=== PATIENT | female | born 1990 | race Caucasian/White ===

== ENCOUNTER 2018-11-27 06:02 | Emergency (ER) | payer SELFPAY ==
[~2018-11-27] VITALS: Ht 149.9 cm; Wt 68.0 kg
[2018-11-27 07:00] VITALS: BP 121/75
== END 2018-11-27 07:05 | disposition home or self-care (01) ==
LOC: EMS 06:08 → EDSEX 06:08 → EMS 07:05
DX: K02.9 Dental caries, unspecified (principal); K06.8 Other specified disorders of gingiva and edentulous alveolar ridge

== ENCOUNTER 2019-01-03 08:33 | Emergency (ER) | payer SELFPAY ==
[~2019-01-03] VITALS: Ht 152.4 cm; Wt 59.1 kg
[2019-01-03 10:57] VITALS: BP 116/89
== END 2019-01-03 11:01 | disposition home or self-care (01) ==
LOC: EMS 08:35
DX: S92.411A Displaced fracture of proximal phalanx of right great toe, initial encounter for closed fracture (principal); W01.0XXA Fall on same level from slipping, tripping and stumbling without subsequent striking against object, initial encounter; Y93.01 Activity, walking, marching and hiking; Y92.89 Other specified places as the place of occurrence of the external cause; Y99.8 Other external cause status